=== PATIENT | male | born 1980 | race Caucasian/White ===

== ENCOUNTER → 2016-10-11 | Emergency (ER) | payer BC ==
[~2016-10-11] MED LIST: NS 0.9% 1000 ML* 1,000 ML IV ONE
[2016-10-11 08:10] VITALS: BP 141/75
[2016-10-11 09:20] LABS: Hematocrit 50 % (42-52); Hemoglobin 16.8 g/dl (14.0-18.0); Mean Corpuscular HGB Conc 33 g/dl (31-36); Mean Corpuscular Hemoglobin 28 pg (27-31); Mean Corpuscular Volume 85 fL (80-94); Mean Platelet Volume 8 um3 (7.4-10.4); Red Blood Count 5.92 10^6/ul (4.0-5.4); Red Cell Distribution Width 14 % (10.5-15); White Blood Count 5.4 10^3/ul (3.5-10.8)
[2016-10-11 09:33] LABS: Albumin 5.1 g/dL (3.2-5.2); BUN/Creatinine Ratio 14.9 (8-20); Calcium 10.1 mg/dL (8.6-10.3); EGFR African American 115.5 (>60); EGFR Non-African American 89.8 (>60); Globulin 3.1 g/dL (2-4); Magnesium 2.1 mg/dL (1.9-2.7); Total Bilirubin 0.9 mg/dL (0.2-1.0); Total Protein 8.2 g/dL (6.4-8.9)
--- NOTE | 2016-10-11 09:34 | RAD ---
Indication: Irregular heart rate. Palpitations. 2 views of the chest including dual energy PA views demonstrate no mediastinal shift. Heart is of normal size and configuration. Lung greenberg appear clear. IMPRESSION: No active cardiopulmonary disease is noted.
[2016-10-11 10:07] LABS: TSH (Thyroid Stimulating Horm) 1.53 mcIU/mL (0.34-5.60)
--- NOTE | 2016-10-11 10:55 | ED ---
Jorge Velasquez Benjamin, scribed for Cristo Abel MD on 10/11/16 at 0844 . Palpitations / Dysrhythmia - HPI Summary HPI Summary: 36yo male c/o intermittent palpitations for 2 weeks that have been increasing in frequency. Pt describes the palpitation is not beating right. Episodes last for minutes, but recently has been up to hours at times and palpitation kept him up last night. No prior episode. Pt states that smoking makes it worse. Pt denies fever, chills, night sweats, fatigue, SOB, syncope, or CP, but little tightness in chest. Pt denies any significant PMHx or FHx. Pt smokes 1PPD , and is occasionally drinks ETOH. Denies recreastional drug use. - History of Current Complaint Chief Complaint: EDDysrhythmPalp Time Seen by Provider: 10/11/16 08:32 Hx Obtained From: Patient Onset/Duration: Gradual Onset, Lasting Weeks - 2 weeks Timing: Intermittent Episodes Lasting: Severity Initially: Mild Severity Currently: Mild Character: Irregular Alleviating: Nothing Associated Signs & Symptoms: Negative - Risk Factors Cardiac: Smoking PMH/Surg Hx/FS Hx/Imm Hx Previously Healthy: Yes Infectious Disease History: No Infectious Disease History: Denies: Traveled Outside the [place] in Last 30 Days - Family History Known Family History: Negative: Cardiac Disease, Hypertension - Social History Occupation: Employed Full-time Alcohol Use: Weekly Hx Substance Use: No Hx Tobacco Use: Yes Smoking Status (MU): Heavy Every Day Tobacco Smoker - 1ppd for 20 yrs Review of Systems Constitutional: Negative Eyes: Negative ENT: Negative Positive: Palpitations. Negative: Chest Pain Respiratory: Negative Gastrointestinal: Negative Genitourinary: Negative Musculoskeletal: Negative Skin: Negative Neurological: Negative Psychological: Normal All Other Systems Reviewed And Are Negative: Yes Physical Exam Triage Information Reviewed: Yes Vital Signs On Initial Exam: Initial Vitals Temp Pulse Resp BP Pulse Ox 98.8 F 80 20 141/75 100 10/11/16 08:05 10/11/16 08:05 10/11/16 08:05 10/11/16 08:05 10/11/16 08:05 Vital Signs Reviewed: Yes Appearance: Positive: Well-Appearing, No Pain Distress, Well-Nourished Skin: Positive: Warm, Skin Color Reflects Adequate Perfusion, Dry Head/Face: Positive: Normal Head/Face Inspection Eyes: Positive: Normal ENT: Positive: Normal ENT inspection Neck: Positive: Supple, Nontender Respiratory/Lung Sounds: Positive: Clear to Auscultation, Breath Sounds Present Cardiovascular: Positive: RRR. Negative: Murmur, Rub Abdomen Description: Positive: Nontender, No Organomegaly Bowel Sounds: Positive: Present Musculoskeletal: Positive: Normal, Strength/ROM Intact Neurological: Positive: Normal, Sensory/Motor Intact, Alert, Oriented to Person Place, Time, CN Intact II-III, Reflexes Intact Psychiatric: Positive: Affect/Mood Appropriate Diagnostics - Vital Signs Vital Signs Temp Pulse Resp BP Pulse Ox 10/11/16 08:05 98.8 F 80 20 141/75 100 - Laboratory Lab Results: Lab Results 10/11/16 10/11/16 10/11/16 Range/Units 09:08 09:08 09:08 WBC 5.4 (3.5-10.8) 10^3/ul RBC 5.92 H (4.0-5.4) 10^6/ul Hgb 16.8 (14.0-18.0) g/dl Hct 50 (42-52) % MCV 85 (80-94) fL MCH 28 (27-31) pg MCHC 33 (31-36) g/dl RDW 14 (10.5-15) % Plt Count 218 (150-450) 10^3/ul MPV 8 (7.4-10.4) um3 Neut % (Auto) 64.2 (38-83) % Lymph % (Auto) 24.4 L (25-47) % [place] % (Auto) 8.3 (1-9) % Eos % (Auto) 2.5 (0-6) % Baso % (Auto) 0.6 (0-2) % Absolute Neuts (auto) 3.5 (1.5-7.7) 10^3/ul Absolute Lymphs (auto) 1.3 (1.0-4.8) 10^3/ul Absolute Monos (auto) 0.4 (0-0.8) 10^3/ul Absolute Eos (auto) 0.1 (0-0.6) 10^3/ul Absolute Basos (auto) 0 (0-0.2) 10^3/ul Absolute Nucleated RBC 0.01 10^3/ul Nucleated RBC % 0.3 D-Dimer, Quantitative < 200 (Less Than 230) ng/mL Sodium 135 (133-145) mmol/L Potassium 4.0 (3.5-5.0) mmol/L Chloride 102 (101-111) mmol/L Carbon Dioxide 26 (22-32) mmol/L Anion Gap 7 (2-11) mmol/L BUN 14 (6-24) mg/dL Creatinine 0.94 (0.67-1.17) mg/dL Est GFR ( Amer) 115.5 (>60) Est GFR (Non-Af Amer) 89.8 (>60) BUN/Creatinine Ratio 14.9 (8-20) Glucose 97 (70-100) mg/dL Calcium 10.1 (8.6-10.3) mg/dL Magnesium 2.1 (1.9-2.7) mg/dL Total Bilirubin 0.90 (0.2-1.0) mg/dL AST 17 (13-39) U/L ALT 15 (7-52) U/L Alkaline Phosphatase 55 (34-104) U/L Troponin I 0.00 (<0.04) ng/mL Total Protein 8.2 (6.4-8.9) g/dL Albumin 5.1 (3.2-5.2) g/dL Globulin 3.1 (2-4) g/dL Albumin/Globulin Ratio 1.6 (1-3) TSH 1.53 (0.34-5.60) mcIU/mL Result Diagrams: 10/11/16 09:08 10/11/16 09:08 Lab Statement: Any lab studies that have been ordered have been reviewed, and results considered in the medical decision making process. - EKG 0849 Cardiac Rate: NL - 69bpm EKG Rhythm: Sinus Rhythm Ectopy: PACs EKG Interpretation: early repolarization. Course/Dx - Course Assessment/Plan: WELL IN ED. DISCUSSED RESULTS WITH PATIENT. PATIENT IS ASYMPTOMATIC. DISCHARGE HOME STABLE. - Diagnoses Provider Diagnoses: Premature atrial beats, Palpitations Discharge - Discharge Plan Condition: Stable Disposition: HOME Patient Education Materials: Premature Atrial Contractions (ED), Palpitations ( ED) Additional Instructions: FOLLOW UP WITH YOUR DOCTOR. RETURN TO THE EMERGENCY DEPARTMENT FOR ANY WORSENING OF YOUR CONDITION; CHEST PAIN, SHORTNESS OF BREATH, YOU FEEL LIKE YOU ARE GOING TO PASS OUT OR QUESTIONS OR CONCERNS. The documentation as recorded by the Jorge dennison Benjamin accurately reflects the service I personally performed and the decisions made by me, Cristo Abel MD.
== END | disposition home or self-care (01) ==
LOC: ED 08:02
DX: I49.1 Atrial premature depolarization (principal); R00.2 Palpitations; F17.210 Nicotine dependence, cigarettes, uncomplicated
CPT/HCPCS: 36415; 71020; 80053; 83735; 84443; 84484; 85025; 85379; 93005; 96360; 99282